=== PATIENT | female | born 1945 | race Asian ===

== ENCOUNTER 2019-06-22 10:19 | Outpatient (RCR) | payer MEDICARE, BC ==
[~2019-06-22 10:19] MED LIST: ASPIR 8181 MG PO; B COMPLEX; BETA CAROTENE; CALCIUM; CALCIUM 600 +1 EAC2 PO; DICYCLOMINE HCL20 MG PO; DILTIAZEM HCL30 MG PO; DOCUSATE SODIU100 MG PO; FISH OIL; FOSAMAX70 MG PO; LISINOPRIL2.5 MG PO; LISINOPRIL5 MG PO; MAGNESIUM; NEXIUM40 MG PO; POTASSIUM; SELENIUM; TYLENOL; XANAX0.25 MG PO; Z FOSAMAX PO; [UNRECOGNIZED DRUG - OTHER]
== END 2019-06-24 ==
LOC: PT 10:19
PROVIDERS: ATTEND Orthopaedic Surgery
DX: M54.5 Low back pain (principal); M62.81 Muscle weakness (generalized); R26.2 Difficulty in walking, not elsewhere classified; M53.86 Other specified dorsopathies, lumbar region

== ENCOUNTER 2019-07-07 11:00 | Outpatient (RCR) | payer MEDICARE, BC | END 2019-07-24 | LOC: PT 11:00 | PROVIDERS: ATTEND Orthopaedic Surgery | DX: M54.5 Low back pain (principal); M62.81 Muscle weakness (generalized); R26.2 Difficulty in walking, not elsewhere classified; M53.86 Other specified dorsopathies, lumbar region ==